=== PATIENT | female | born 2000 | race Caucasian/White ===

== ENCOUNTER 2021-03-27 14:57 | Outpatient (CLI) | payer OTHER | END 2021-03-27 19:59 | disposition home or self-care (01) | LOC: GENOP 14:57 | DX: O47.1 False labor at or after 37 completed weeks of gestation (principal); Z3A.39 39 weeks gestation of pregnancy | CPT/HCPCS: 81001; 96360; 96361; 96367; J2405; J7120 ==

== ENCOUNTER 2021-04-03 15:38 | Inpatient (IN) | payer OTHER ==
[~2021-04-03] VITALS: Ht 160 cm; Wt 89.8 kg
[2021-04-03] MEDS ORDERED: PEPCID20 MG PO (18:34)
[2021-04-03 19:18] LABS: HEMOGLOBIN 8.9 gm/dl (12.3-15.3); RED BLOOD COUNT 3.41 M/UL (4.00-5.10); WHITE BLOOD COUNT 14.9 K/UL (4.5-11.0)
[2021-04-03 19:42] LABS: BUN/CREATININE RATIO 8 (0-10)
[2021-04-04] MEDS ORDERED: DOCUSATE SODIU100 MG PO (13:22)
[2021-04-04] MEDS ORDERED: IBUPROFEN600 MG PO (13:22)
[2021-04-05] MEDS ORDERED: FERROUS SULFAT325 MG PO (11:00)
== END 2021-04-05 18:38 | disposition home or self-care (01) | DRG 807 ==
LOC: GENOP 15:38 → OB 18:36
PROVIDERS: ADMIT Obstetrics & Gynecology
PROC: 10E0XZZ Delivery of Products of Conception, External Approach (ICD-10-PCS; principal; 2021-04-04)
PROC: 4A1HXCZ Monitoring of Products of Conception, Cardiac Rate, External Approach (ICD-10-PCS; 2021-04-04)
PROC: 00HU33Z Insertion of Infusion Device into Spinal Canal, Percutaneous Approach (ICD-10-PCS; 2021-04-04)
PROC: 3E0R3BZ Introduction of Anesthetic Agent into Spinal Canal, Percutaneous Approach (ICD-10-PCS; 2021-04-04)
PROC: 10907ZC Drainage of Amniotic Fluid, Therapeutic from Products of Conception, Via Natural or Artificial Opening (ICD-10-PCS; 2021-04-04)
DX: O48.0 Post-term pregnancy (principal); Z37.0 Single live birth; O13.4 Gestational [pregnancy-induced] hypertension without significant proteinuria, complicating childbirth; Z3A.40 40 weeks gestation of pregnancy; K21.9 Gastro-esophageal reflux disease without esophagitis; O99.62 Diseases of the digestive system complicating childbirth; Z20.822 Contact with and (suspected) exposure to COVID-19; O77.0 Labor and delivery complicated by meconium in amniotic fluid; O99.02 Anemia complicating childbirth; D64.9 Anemia, unspecified; O75.89 Other specified complications of labor and delivery; O99.284 Endocrine, nutritional and metabolic diseases complicating childbirth; E03.9 Hypothyroidism, unspecified; O99.214 Obesity complicating childbirth; E66.9 Obesity, unspecified; Z90.49 Acquired absence of other specified parts of digestive tract; Z98.890 Other specified postprocedural states
CPT/HCPCS: 36415; 51702; 80053; 81001; 82570; 84156; 85014; 85018; 85025; 86850; 86900; 86901; 86920; J0595; J1756; J2405; J2590; J7120; P9016; U0002